=== PATIENT | female | born 1975 | race African-American/Black ===

== ENCOUNTER 2016-12-04 13:47 | Emergency (ER) | payer OTHER ==
--- NOTE | ~2016-12-04 | EKG ---
PATIENT: PHILIP HOPE UNIT #: [id number] Ventricular Rate: 89 BPM Atrial Rate: 89 BPM P-R Interval: 166 ms QRS Duration: 90 ms Q-T Interval: 360 ms QTC Calculation(Bezet): 438 ms P Florence: 47 degrees Calculated R Florence: 16 degrees Calculated T Florence: 58 degrees Diagnosis Line: Normal sinus rhythm Diagnosis Line: Minimal voltage criteria for LVH, may be normal Diagnosis Line: variant Diagnosis Line: Nonspecific T wave abnormality Diagnosis Line: Abnormal ECG Diagnosis Line: When compared with ECG of 13-JAN-2010 15:01, Diagnosis Line: ND interval has decreased Diagnosis Line: Confirmed by JEANIE CHAKRABORTY MD ([id number]) on 12/04/2016 Diagnosis Line: 10:47:14 PM INTERPRETING MD: PALMER GUERRERO
--- NOTE | ~2016-12-04 | CR63 ---
[facility] A Service of [facility] [place] RADIOLOGY TEXT RESULTS PATIENT: PHILIP HOPE LOCATION: [facility] : [birth year] UNIT #: [id number] AGE: [address]: Alberto Anaya MD SEX: F ORDER DR: [id number] [facility] [address] [place], [place] [address] [id number] E MR#: [id number] Acc #: [id number] NAME: PHILIP HOPE : 1975 SEX: F STUDY DATE/TIME: 12/04/2016 12:55 UNIT: [facility] ROOM: STUDY DESCRIPTION: CR Chest 2 View Attending Physician: Alberto Anaya M.D. Ordering Physician: Alberto Anaya M.D. Primary Care Physician: [facility], MEDICAL IMAGING REPORT This report is preliminary unless electronic signature is present EXAM PA lateral chest INDICATIONS A 41-year-old female with shortness of breath and chest pain for 2 days. COMPARISON 04/26/2008 FINDINGS There is mild atelectasis in the right lung base. The heart size normal. Visualized osseous structures are unremarkable. IMPRESSION No active disease. Mild atelectasis in the right base Dictated by... Michi Rogers M.D. THIS IS AN ELECTRONICALLY VERIFIED REPORT Michi Rogers M.D. at 12/05/2016 8:57 AM DIANNE/ludivina TD: 12/04/2016 14:00 JOB #: [id number] MEDICAL IMAGING REPORT Page 1 of 1 COPY
[2016-12-04 13:07] LABS: POC - CKMB <1.0 ng/mL (0.0-7.9); POC - TROPONIN <0.05 ng/mL (<=0.05)
[2016-12-04 13:08] LABS: BASOPHIL% 0.4 % (0-2.5); DIFF IND NO; EOSINOPHIL# 0.2 X10e3 (0-0.7); EOSINOPHIL% 1.8 % (0.0-7.0); HEMOGLOBIN 13.6 gm/dL (12.0-16.0); LYMPHOCYTE# 1.8 X10e3 (1.0-3.5); LYMPHOCYTE% 16.2 % (17.0-45.0); MEAN CELL VOLUME 92.9 FL (83-96); MEAN CORPUSCULAR HEMOGLOBIN 29.3 PG (28-34); MEAN CORPUSCULAR HGB CONC 31.5 g/dL (30-36); MEAN PLATELET VOLUME 8.5 FL (6.5-11.5); MONOCYTE# 0.7 X10e3 (0-1.0); MONOCYTE% 6.2 % (3.0-12.0); NEUTROPHIL# 8.4 X10e3 (1.5-7.1); NEUTROPHIL% 75.4 % (40-75); PLATELET COUNT 246 X10e3 (140-420); RED BLOOD COUNT 4.63 X10e (3.90-5.30); RED CELL DISTRIBUTION WIDTH 14.5 % (11.0-15.5); WHITE BLOOD COUNT 11.1 X10e3 (4.0-10.5)
[2016-12-04 13:43] LABS: ALBUMIN SERUM 3.9 g/dL (3.5-5.0); BILIRUBIN, DIRECT 0.1 mg/dL (0.0-0.2); BILIRUBIN,INDIRECT 0.4 mg/dL (0.0-0.9); BILIRUBIN,TOTAL 0.5 mg/dL (0.2-2.0); BUN/CREATININE RATIO 11.42; CALCIUM SERUM 9.1 mg/dL (8.4-10.2); CREATININE SERUM 0.7 mg/dL (0.6-1.4); GLOM FILT RATE Estimated 125.6 mL/min (>60); POTASSIUM 3.1 mmol/L (3.5-5.1); PROTEIN TOTAL SERUM 7.2 g/dL (6.0-8.3)
[~2016-12-04 13:47] MED LIST: ACETAMINOPHEN PO; AUGMENTIN PO; CLINDAMYCIN HC300 MG PO; FIORICET 50-321 EACH PO; HCTZ PO; NORMODYNE PO; NORVASC PO; PERCOCET 51 UDTAB 5/ DOB; PRILOSEC PO; ROBITUSSIN-DM120 ML PO; VICODIN 5/500 T1 TAB PO
== END 2016-12-04 14:06 | disposition home or self-care (01) ==
LOC: CED 13:47
PROVIDERS: Emergency Medicine
DX: J20.9 Acute bronchitis, unspecified (principal); E87.6 Hypokalemia; I10 Essential (primary) hypertension; Z79.899 Other long term (current) drug therapy; Z88.0 Allergy status to penicillin
CPT/HCPCS: 36415; 71020; 80048; 80076; 82553; 83880; 84484; 85025; 85379; 93005; 94640; 99284

== ENCOUNTER → 2017-04-04 | Outpatient (CLI) | payer OTHER ==
--- NOTE | ~2017-04-04 | US128 ---
[id number] [facility] [address] [place], [place] [address] [id number] O MR#: [id number] Acc #: [id number] NAME: PHILIP HOPE : 1975 SEX: F STUDY DATE/TIME: 04/04/2017 11:40 UNIT: [facility] ROOM: STUDY DESCRIPTION: US Thyroid Attending Physician: Román Tidwell M.D. Ordering Physician: Román Tidwell M.D. Primary Care Physician: [facility] MEDICAL IMAGING REPORT This report is preliminary unless electronic signature is present EXAM Thyroid ultrasound INDICATION Multinodular thyroid gland/toxic diffuse goiter diagnosed March 27, 2017. TECHNIQUE Harris-scale and color Doppler sonographic images were obtained through the thyroid gland. FINDINGS Thyroid gland is enlarged. Right lobe measures 5.8 x 2.1 x 2.4 cm. Left lobe measures 6.3 x 2.2 x 2.8 cm. Isthmus measures around 7 mm in thickness. Patient has bilateral thyroid nodules. Within the superior pole of the right lobe of the thyroid gland, there is a hyperechoic nodule measuring 1.0 x 0.9 x 0.6 cm. This was not identified on prior exam from December 2014. Speech Correction Consultant measures a hypoechoic area posteriorly within the right lobe of the thyroid gland measuring 1.3 x 1.0 x 1.3 cm but I am not convinced this is a true nodule as I do not see it definitively on the longitudinal images. Within the left lobe of the thyroid gland, there is a mixed solid and cystic nodule measuring 1.3 x 0.9 x 1.1 cm. It is predominantly hyperechoic. There is a hypoechoic nodule which is located inferior and medial to it measuring 1.1 x 0.8 x 1.1 cm. I do not definitively see this nodule on the prior exam. There is also a heterogeneous nodule within the inferior pole of the left lobe of the thyroid gland which the bulk clerk measures up to 1.7 x 1.3 x 1.2 cm. This was actually present on the prior exam from 2014 and I think when allowance is made for differences in technique has not significantly changed in size. Remeasured in the same dimensions, it measures 1.2 x 1.1 x 1.2 cm. IMPRESSION 1. This patient has a new hyperechoic nodule seen within the right lobe of the thyroid gland as well as a new hypoechoic nodule within the left lobe of the thyroid gland. Neither of these meet size criteria for percutaneous sampling at this time. Speech Correction Consultant measures an additional nodule within the right lobe of the thyroid gland which I am not completely convinced is a true nodule as it is not well seen on the sagittal images. In addition, there is a heterogeneous nodule within the inferior pole of the left lobe of the thyroid gland which I think is probably not significantly changed in size when allowance is made for differences in technique. Given the presence of some potentially new nodules as well as possible a pseudo nodule within the right lobe of the thyroid gland, I would suggest short-term sonographic followup in 6 months. 2. Thyromegaly. Dictated by... Disha Bellamy M.D. THIS IS AN ELECTRONICALLY VERIFIED REPORT Disha Bellamy M.D. at 04/05/2017 2:09 PM LEEANN/vinicius TD: 04/05/2017 11:06 JOB #: [id number] MEDICAL IMAGING REPORT Page 1 of 1 COPY
== END | disposition home or self-care (01) ==
LOC: CWCC 11:00
DX: E05.20 Thyrotoxicosis with toxic multinodular goiter without thyrotoxic crisis or storm (principal)
CPT/HCPCS: 76536